=== PATIENT | female | born 1960 | race Caucasian/White ===

== ENCOUNTER 2023-01-02 19:58 | Emergency (ER) | payer BC ==
[~2023-01-02] VITALS: Ht 170.2 cm; Wt 70.3 kg
[~2023-01-02 19:58] MED LIST: LEVO112T2 PO; SIMV10TA98 PO
[2023-01-02 20:08] VITALS: BP 121/71
--- NOTE | 2023-01-02 20:10 | NUR ---
PATIENT BIBRA FROM HOME FOR TRIP AND FALL, C/O RT ANKLE PAIN, NO OTHER COMPLAINTS OF PAIN AT THIS TIME.
--- NOTE | 2023-01-02 21:15 | NUR ---
Patient discharged to home in stable condition. Written and verbal after care instructions given. Patient verbalizes understanding of instruction.
== END 2023-01-02 21:46 | disposition home or self-care (01) ==
LOC: ER 20:00
DX: S93.401A Sprain of unspecified ligament of right ankle, initial encounter (principal); E78.00 Pure hypercholesterolemia, unspecified; E03.9 Hypothyroidism, unspecified; W01.0XXA Fall on same level from slipping, tripping and stumbling without subsequent striking against object, initial encounter; Y93.89 Activity, other specified; Y92.009 Unspecified place in unspecified non-institutional (private) residence as the place of occurrence of the external cause; Y99.8 Other external cause status
CPT/HCPCS: 73610-TC